=== PATIENT | female | born 1980 | race African-American/Black ===

== ENCOUNTER 2018-11-16 10:48 | Emergency (ER) | payer MEDICAID ==
[2018-11-16] MEDS: FLUORESCEIN STRIP BOTH EYES (12:36)
[2018-11-16] MEDS: TETRACAINE 0.5% 4 ML OPH BOTH EYES (12:53)
== END 2018-11-16 14:28 | disposition home or self-care (01) ==
LOC: FTE 10:48
DX: H10.13 Acute atopic conjunctivitis, bilateral (principal)
CPT/HCPCS: 99282; Z7502